=== PATIENT | female | born 1995 | race African-American/Black ===

== ENCOUNTER 2017-08-18 19:35 | Emergency (ER) | payer OTHER ==
[~2017-08-18] VITALS: Ht 160 cm; Wt 51.3 kg
[2017-08-18] MEDS ORDERED: SKELAXIN800 MG PO (22:11)
[2017-08-18] MEDS ORDERED: MOTRIN600 MG PO (22:11)
[2017-08-18 22:22] VITALS: BP 134/77
== END 2017-08-18 22:23 | disposition home or self-care (01) ==
LOC: EME 19:35
DX: S16.1XXA Strain of muscle, fascia and tendon at neck level, initial encounter (principal); S63.602A Unspecified sprain of left thumb, initial encounter; V40.1XXA Car passenger injured in collision with pedestrian or animal in nontraffic accident, initial encounter; Y92.410 Unspecified street and highway as the place of occurrence of the external cause
CPT/HCPCS: 72050; 73140; 99281; 99283